=== PATIENT | female | born 2000 | race Caucasian/White ===

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

== ENCOUNTER 2022-06-03 10:36 | Emergency (ER) | payer BC, OTHER ==
[~2022-06-03] VITALS: Ht 142.2 cm; Wt 60.8 kg
--- NOTE | 2022-06-03 10:51 | NUR ---
Patient ambulated to bed 6.
[2022-06-03 10:55] VITALS: BP 93/63
--- NOTE | 2022-06-03 10:55 | NUR ---
22 y/o female bib self, c/o lower bl rib pain that started today, denies heavy lifting, no sick contacts, no new foods, fever, chills, sob, nausea, diarrhea. states she had 1 episode of vomiting today. pmh: anxiety nka
--- NOTE | 2022-06-03 10:58 | NUR ---
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 Patient denies any trauma, injury or heavy lifting. Denies any fevers, chills or sick contacts. Patient had one episode of vomiting. Medical History: Anxiety NKDA
--- NOTE | 2022-06-03 11:11 | NUR ---
YAHAIRA Burnett evaluating patient at bedside.
[2022-06-03] MEDS ORDERED: IBUPROFEN 400 MG TAB PO ONE (11:15)
[2022-06-03] MEDS ORDERED: IBUP-1842 PO (14:55)
--- NOTE | 2022-06-03 15:00 | NUR ---
Patient discharged with v/s stable. Written and verbal after care instructions given and explained. Patient verbalized understanding. Ambulatory with steady gait. All questions addressed prior to discharge. Advised to follow up with PMD.
--- NOTE | 2022-06-03 15:04 | NUR ---
The patient's care was reviewed and supervised by Hereford 05 BRYANT, RN.
== END 2022-06-03 15:00 | disposition home or self-care (01) ==
LOC: MED 10:36
DX: R07.81 Pleurodynia (principal); R11.10 Vomiting, unspecified
CPT/HCPCS: 71111; 99283